=== PATIENT | male | born 1950 | race Caucasian/White ===

== ENCOUNTER → 2018-06-26 | Outpatient (CLI) | payer OTHER ==
--- NOTE | 2018-06-26 14:45 | PCVCIMAG ---
APPROVED REPORT Study performed: 06/26/2018 10:03:55 EXAM: Comprehensive 2D, Doppler, and color-flow Echocardiogram Patient Location: Echo lab Room #: 3Status: routine BSA: 1.83 HR: 89 bpmBP: 154/88 mmHg Rhythm: NSR Other Information Study Quality: Good Risk Factors: Cardiac Risk Factors: HTN Indications Hypertension/HDD 2D Dimensions IVSd: 7.85 (7-11mm)LVOT Diam: 20.01 (18-24mm) LVDd: 44.48 mm PWd: 9.88 (7-11mm)Ascending Ao: 28.05 (22-36mm) LVDs: 28.82 (25-40mm) Left Atrium: 34.74 (27-40mm) Aortic Root: 20.43 mm LV Single Plane 4CH: 54.52 % LV Single Plane 2CH: 51.04 % Biplane EF: 53.5 % Volumes Left Atrial Volume (Systole) Single Plane 4CH: 45.28 mLSingle Plane 2CH: 42.85 mL Biplane LA Volume: 48.00 mLLA ESV Index: 26.00 mL/m2 Aortic Valve AoV Peak Ari.: 1.62 m/s AO Peak Gr.: 10.45 mmHg Mitral Valve E/A Ratio: 1.0 MV Decel. Time: 166.89 ms MV E Max Ari.: 1.10 m/s MV A Ari.: 1.14 m/s MV PHT: 48.40 ms IVRT: 72.66 ms TDI E/Lateral E': 15.71E/Medial E': 15.71 Medial E' Ari.: 0.07 m/s Lateral E' Ari.: 0.07 m/s Pulmonary Valve PV Peak Ari.: 1.27 m/sPV Peak Gr.: 6.45 mmHg Pulmonary Vein P Vein S: 0.79 m/sP Vein A: 0.46 m/s P Vein D: 0.58 m/sP Vein A Dur.: 110.7 msec P Vein S/D Ratio: 1.36 Tricuspid Valve TR Peak Ari.: 2.58 m/s TR Peak Gr.: 26.61 mmHg TV Vmax: 0.53 m/sPA Pressure: 32.00 mmHg Left Ventricle The left ventricle is normal size. There is normal LV segmental wall motion. There is normal left ventricular wall thickness. Left ventricular systolic function is normal. The left ventricular ejection fraction is within the normal range. LVEF is 50-55%. Findings suggest the left atrial pressure is elevated. Right Ventricle The right ventricle is normal size. The right ventricular systolic function is normal. Atria The left atrium size is normal. The right atrium size is normal. Aortic Valve Aortic valve is trileaflet. The aortic valve is normal in structure. No aortic regurgitation is present. There is no aortic valvular stenosis. Mitral Valve The mitral valve is normal in structure. There is no mitral valve regurgitation noted. No evidence of mitral valve stenosis. Tricuspid Valve The tricuspid valve is normal in structure. Mild tricuspid regurgitation with a PA pressure of 32 mmHg. Mild pulmonary hypertension. Pulmonic Valve The pulmonary valve is normal in structure. There is no pulmonic valvular regurgitation. Great Vessels The aortic root is normal in size. IVC is normal in size and collapses >50% with inspiration. Pericardium There is no pericardial effusion. <Conclusion> The left ventricle is normal size. LVEF is 50-55%. Aortic valve is trileaflet. The aortic valve is normal in structure. The mitral valve is normal in structure. The tricuspid valve is normal in structure. Mild tricuspid regurgitation with a PA pressure of 32 mmHg. Mild pulmonary hypertension. The pulmonary valve is normal in structure. There is no pericardial effusion.
== END | disposition home or self-care (01) ==
LOC: PCVCIMAG 12:33
PROVIDERS: ATTEND Internal Medicine
DX: I07.1 Rheumatic tricuspid insufficiency (principal); I10 Essential (primary) hypertension; I27.20 Pulmonary hypertension, unspecified
CPT/HCPCS: 93306